=== PATIENT | female | born 1975 | race Caucasian/White ===

== ENCOUNTER 2016-12-15 08:33 | Emergency (ER) | payer MEDICAID ==
[~2016-12-15] VITALS: Ht 162.6 cm; Wt 90.0 kg
[2016-12-15 09:01] VITALS: BP 112/62
[2016-12-15] MEDS ORDERED: KETOROLAC TROMETH 60MG/2ML VIAL IM ONE (09:30)
== END 2016-12-15 10:49 | disposition home or self-care (01) ==
LOC: ER 08:37
DX: M25.512 Pain in left shoulder (principal); R07.89 Other chest pain; V89.2XXA Person injured in unspecified motor-vehicle accident, traffic, initial encounter; Y93.I9 Activity, other involving external motion; Y92.411 Interstate highway as the place of occurrence of the external cause; Y99.8 Other external cause status
CPT/HCPCS: 71020; 73030; 96372; 99284; J1885